=== PATIENT | female | born 1970 | race African-American/Black ===

== ENCOUNTER 2016-03-20 11:22 | Emergency (ER) | payer MEDICAID, OTHER ==
[~2016-03-20] VITALS: Ht 167.6 cm; Wt 116.5 kg
[~2016-03-20 11:22] MED LIST: [UNRECOGNIZED DRUG - CODE] PO
[2016-03-20 11:25] VITALS: BP 205/99; PULSE 68; RESP 18; O2SAT 98
--- NOTE | 2016-03-20 11:27 | PD ---
HPI Chief Complaint: R hand inj Time Seen by Provider: 11:27 Travel History International Travel<30 days: No Contact w/Intl Traveler<30days: No Traveled to known affect area: No History of Present Illness HPI 45 year old female presents to ED for evaluation of R hand pain for a week and a half after hitting on a door knob. Patient states that she has some wearing a compression glove on it but the pain persists. She has taken Tylenol for with now any relief of symptoms. She does have additional pain control at home but states that it doesn't really help either. Denies any fever or chills. Patient does not radiate anywhere. She has no limitations range motion of the hand. No other symptoms to report. PFSH Past Medical History Autoimmune Disease: No Blood Disorders: No Cancer: Yes (CML WITH THROMBOCYTOSIS) Cardiac Catheterization: Yes (IN 2008) Cardiovascular Problems: Yes High Cholesterol: Yes Chemotherapy: Yes Diabetes: Yes (DIET CONTROLLED) Diminished Hearing: No Gastrointestinal Disorders: No Genitourinary: No Hypertension: Yes Kidney Stones: No Musculoskeletal: No Neurologic: No Psychiatric: No Reproductive: Yes Respiratory: No Immunizations Current: No Myocardial Infarction: Yes (2006) Radiation Therapy: No Renal Failure: No Seizures: No Sickle Cell Disease: No Sleep Apnea: No Thyroid Disease: No Ulcer: No Menopausal: Yes : 4 Para: 4 Miscarriage: 0 : 0 Past Surgical History Abdominal Surgery: Yes (UMBILICAL HERNIA REPAIR) Section: Yes (X3) Gynecologic Surgery: Yes (C-SECTIONS X 3) Hysterectomy: Yes Neurologic Surgery: No Pacemaker: No Thoracic Surgery: No Other Surgery: Yes (THYROGLOSSAL CYST) Social History Alcohol Use: Yes (1-2 DRINKS/MO) Tobacco Use: No Substance Use: No Allergies-Medications (Allergen,Severity, Reaction): Coded Allergies: Aspirin (Verified Allergy, Severe, THROMBOCYTOSIS, 03/20/16) Codeine (Verified Allergy, Severe, VOMIT, 03/20/16) Motrin (Verified Allergy, Severe, Rash, 03/20/16) Rocephin (Verified Allergy, Severe, Rash, 03/20/16) Reported Meds & Prescriptions Reported Meds & Active Scripts Active Reported Sprycel (Dasatinib) 20 Mg Tab 100 Mg PO DAILY Review of Systems Except as stated in HPI: all other systems reviewed are Neg Physical Exam Narrative GENERAL: Well-nourished, well-developed female patient ambulatory and in no acute distress SKIN: Warm and dry. No erythema or edema HEAD: Normocephalic. EYES: No scleral icterus. No injection or drainage. NECK: Supple, trachea midline. No JVD or lymphadenopathy. CARDIOVASCULAR: Regular rate and rhythm without murmurs, gallops, or rubs. RESPIRATORY: Breath sounds equal bilaterally. No accessory muscle use. MUSCULOSKELETAL: No cyanosis, or edema. Patient has full flexion-extension of the right hand. There is no erythema or edema. No tenderness elicited to palpation. No deformities. Cap refill within normal limits. Distal pulses are palpable. Patient intact distal affected extremity. Data Data Last Documented VS Vital Signs Date Time Temp Pulse Resp B/P Pulse Ox O2 Delivery O2 Flow Rate FiO2 03/20/16 12:04 56 19 184/98 97 Room Air Orders Hand, Complete ([id number]) (03/20/16 ) ^ Benitez Bandage (03/20/16 12:29) MDM Medical Decision Making Medical Screen Exam Complete: Yes Emergency Medical Condition: Yes Medical Record Reviewed: Yes Differential Diagnosis Contusion versus sprain versus tendinitis versus fracture Narrative Course 45-year-old female presents to [facility] department for evaluation right hand pain. Patient appears well and without distress. The hand is without erythema or edema. No deformity. X-ray imaging is without acute bony abnormality. Patient is placed in an Benitez wrap and encouraged to continue her pain control that she has at home. I've instructed her to follow-up with a primary care provider. She agrees to return immediately with any acute worsening of symptoms. Diagnosis Primary Impression: Contusion of right hand Qualified Code: S60.221A - Contusion of right hand, initial encounter Referrals: Primary Care Physician Patient Instructions: Contusion in Adults (ED), General Instructions Additional Instructions: BENITEZ wrap for support Elevate to reduce pain Follow up with your primary care provider Med/Other Pt SpecificInfo: No Change to Meds Disposition: 01 DISCHARGE HOME Condition: Stable Lois Will EDVIN Mar 20, 2016 11:27
[2016-03-20 12:04] VITALS: BP 184/98; PULSE 56; RESP 19; O2SAT 97
--- NOTE | 2016-03-20 12:18 | RADRPT ---
EXAM DATE/TIME: 03/20/2016 11:41 [facility] COMPARISON: No previous studies available for comparison. INDICATIONS : Right hand pain after hitting it on door knob. MEDICAL HISTORY : Leukemia. Thrombocytosis.Myocardial infarction. Hypertension. diabetes SURGICAL HISTORY : section. Hysterectomy.umbilical hernia repair ENCOUNTER: Initial ACUITY: 1 week PAIN SCORE: 0/10 LOCATION: Right hand. FINDINGS: Three view examination of the right hand demonstrates no soft tissue swelling, dislocation, or fractu re. The carpal bones appear intact. The interphalangeal and metacarpophalangeal joints are intact. Bony mineralization is normal. CONCLUSION: Unremarkable examination of the right hand. Marietta Sauer MD on March 20, 2016 at 12:16 Board Certified Radiologist. This report was verified electronically.
== END 2016-03-20 13:01 | disposition home or self-care (01) ==
LOC: NETRI 11:22
DX: S60.221A Contusion of right hand, initial encounter (principal); E78.00 Pure hypercholesterolemia, unspecified; E11.9 Type 2 diabetes mellitus without complications; I10 Essential (primary) hypertension; I25.2 Old myocardial infarction; W22.8XXA Striking against or struck by other objects, initial encounter
CPT/HCPCS: 73130; 99283

== ENCOUNTER 2016-07-04 09:17 | Emergency (ER) | payer MEDICAID, OTHER ==
[~2016-07-04] VITALS: Ht 167.6 cm; Wt 118.0 kg
[2016-07-04 09:20] VITALS: BP 192/99; PULSE 83; RESP 17; TEMP 98.2; O2SAT 99
[2016-07-04] MEDS ORDERED: CHOL1CAP26 PO (09:34)
[2016-07-04] MEDS ORDERED: GABA300C5 PO (09:34)
--- NOTE | 2016-07-04 10:23 | RADRPT ---
EXAM DATE/TIME: 07/04/2016 10:00 [facility] COMPARISON: US LEG RIGHT VENOUS DOPPLER, April 08, 2012, 16:06. INDICATIONS : Right elbow pain. No known injury. MEDICAL HISTORY : Leukemia. Thrombocytosis. SURGICAL HISTORY : None. ENCOUNTER: Initial ACUITY: 4 - 6 days PAIN SCORE: 7/10 LOCATION: Right medial elbow FINDINGS: Multiple view examination of the right elbow demonstrates no soft tissue swelling, joint effusion, or fracture. The osseous structures are in normal alignment. Bony mineralization is normal. CONCLUSION: Normal radiographic appearance of the right elbow. Govind Jackson MD on July 04, 2016 at 10:21 Board Certified Radiologist. This report was verified electronically.
--- NOTE | 2016-07-04 11:02 | RADRPT ---
EXAM DATE/TIME: 07/04/2016 10:18 [facility] COMPARISON: US ARM RIGHT VENOUS DOPPLER, January 18, 2015, 21:25. INDICATIONS : Right arm pain. MEDICAL HISTORY : Diabetes mellitus type 2. Myocardial infarction. Hypercholesterolemia. Hypertension. Anemia. SURGICAL HISTORY : Colonoscopy. EGD. Thyroglocal duct cyst. Hernia repair. Hysterectomy. ENCOUNTER: Initial ACUITY: 1 day PAIN SCORE: 6/10 LOCATION: Right arm. FINDINGS: There is spontaneous flow documented in the brachial, basilic, cephalic, axillary, and subclavian vei ns. The vessels are compressible and augmentation response is documented. No filling defects are se en. The flow is phasic with respiration. Direction of flow in the jugular vein is caudal. CONCLUSION: Normal examination. iMkal Uribe Jr., MD on July 04, 2016 at 10:58 Board Certified Radiologist. This report was verified electronically.
[2016-07-04 11:05] VITALS: BP 168/89; PULSE 64; RESP 20; O2SAT 98
--- NOTE | 2016-07-04 11:15 | PD ---
HPI Chief Complaint: Pain: Acute or Chronic Time Seen by Provider: 09:32 Travel History International Travel<30 days: No Contact w/Intl Traveler<30days: No Traveled to known affect area: No History of Present Illness HPI Patient is a 45-year-old female who comes in complaining of pain to her right arm. She says she does get pain periodically due to her CML. She says she got some pain to this arm a few weeks ago, but it went away when she took a Lortab at home. She says the pain then came back this week. She has noticed swelling to her elbow and her hand. She was told that if this happened, she should be concerned for blood clots and she should come in. She says that at some point the tips of her fingers felt cold. The swelling and the coldness to her hand have resolved. She still has some pain to her elbow and forearm. And she says she feels a tingling on the right side of her hand occasionally. She denies any injuries. She has not taken anything for pain, because she says she likes to avoid taking narcotics as much as possible. She denies any chest pain or shortness of breath. She denies any fever or chills. PFSH Past Medical History Autoimmune Disease: No Blood Disorders: No Cancer: Yes (CML WITH THROMBOCYTOSIS) Cardiac Catheterization: Yes (IN 2008) Cardiovascular Problems: Yes High Cholesterol: Yes Chemotherapy: Yes Diabetes: Yes (DIET CONTROLLED) Patient Takes Glucophage: No Diminished Hearing: No Gastrointestinal Disorders: No Genitourinary: No Hypertension: Yes Kidney Stones: No Musculoskeletal: No Neurologic: No Psychiatric: No Reproductive: Yes Respiratory: No Immunizations Current: No Myocardial Infarction: Yes (2005) Radiation Therapy: No Renal Failure: No Seizures: No Sickle Cell Disease: No Sleep Apnea: No Thyroid Disease: No Ulcer: No Tetanus Vaccination: Never Vaccinated Influenza Vaccination: No ?: Not Menopausal: Yes : 4 Para: 4 Miscarriage: 0 : 0 Past Surgical History Abdominal Surgery: Yes (UMBILICAL HERNIA REPAIR) Section: Yes (X3) Gynecologic Surgery: Yes (C-SECTIONS X 3) Hysterectomy: Yes Neurologic Surgery: No Pacemaker: No Thoracic Surgery: No Other Surgery: Yes (THYROGLOSSAL CYST) Social History Alcohol Use: Yes (1-2 DRINKS/MO) Tobacco Use: No Substance Use: No Allergies-Medications (Allergen,Severity, Reaction): Coded Allergies: Aspirin (Verified Allergy, Severe, THROMBOCYTOSIS, 07/04/16) Codeine (Verified Allergy, Severe, VOMIT, 07/04/16) Motrin (Verified Allergy, Severe, Rash, 07/04/16) Rocephin (Verified Allergy, Severe, Rash, 07/04/16) Reported Meds & Prescriptions Reported Meds & Active Scripts Active Reported Gabapentin 300 Mg Cap 300 Mg PO BID Decara (Cholecalciferol) 50,000 Unit Cap 50,000 Units PO Q7D Sprycel (Dasatinib) 20 Mg Tab 100 Mg PO DAILY Review of Systems Except as stated in HPI: all other systems reviewed are Neg General / Constitutional: No: Fever, Chills HENT: No: Headaches, Lightheadedness Cardiovascular: No: Chest Pain or Discomfort Respiratory: No: Shortness of Breath Gastrointestinal: No: Nausea, Vomiting Musculoskeletal: Positive: Myalgias, Arthralgias, Edema Skin: No Rash, No Change in Pigmentation Neurologic: No: Weakness, Dizziness Physical Exam Narrative GENERAL: Awake and alert, in no acute distress. SKIN: Focused skin assessment warm/dry. HEAD: Atraumatic. Normocephalic. EYES: Pupils equal and round. No scleral icterus. ENT: Mucous membranes pink and moist. NECK: Trachea midline. No JVD. CARDIOVASCULAR: Regular rate and rhythm. No murmur appreciated. RESPIRATORY: No accessory muscle use. Clear to auscultation. Breath sounds equal bilaterally. GASTROINTESTINAL: Abdomen soft, non-tender, nondistended. MUSCULOSKELETAL: No obvious deformities. No clubbing. No cyanosis. No edema. No tenderness to palpation of the right shoulder. Pain with movement of the right elbow. Minimal tenderness to palpation of the right elbow. Radial pulse intact, strong. Capillary refill less than 2 seconds. Full range of motion of her right hand and right elbow. NEUROLOGICAL: Awake and alert. No obvious cranial nerve deficits. Motor grossly within normal limits. Normal speech. PSYCHIATRIC: Appropriate mood and affect; insight and judgment normal. Data Data Last Documented VS Vital Signs Date Time Temp Pulse Resp B/P Pulse Ox O2 Delivery O2 Flow Rate FiO2 07/04/16 11:05 64 20 168/89 98 Room Air 07/04/16 09:20 98.2 Orders Elbow, Complete (4 Vws) (07/04/16 ) Us Arm Venous Doppler (07/04/16 ) MDM Medical Decision Making Medical Screen Exam Complete: Yes Emergency Medical Condition: Yes Medical Record Reviewed: Yes Differential Diagnosis DVT versus fracture versus muscle strain Narrative Course Patient is a 45-year-old female comes in complaining of right arm pain. She says she does get pains periodically due to her CML. She says she was concerned because she had swelling to her hand, but this has gone down. Exam shows some tenderness to palpation of the right elbow and right forearm, pulses and sensation as well as capillary refill are all within normal limits. Patient states she does not one any pain medicine at this time. X-ray of the elbow shows no acute abnormalities. Doppler ultrasound of the arm performed shows no evidence of clots. Patient's radial pulse is strong, fingers are warm, there is no swelling at this time. I do not believe patient is having any arterial compromise. Patient advised that if her symptoms return at any time she should come back for further testing. She is comfortable with discharge at this time. Advised follow-up with her doctor. Diagnosis Primary Impression: Arm pain Qualified Code: M79.601 - Pain of right upper extremity Patient Instructions: Arm Pain (ED), General Instructions Additional Instructions: Follow up with your doctor. Take pain medicine as needed. Return to the ED as needed for any worsening symptoms. Disposition: 01 DISCHARGE HOME Condition: Stable Janel Mayes MD July 04, 2016 11:15
== END 2016-07-04 12:20 | disposition home or self-care (01) ==
LOC: NEPD 09:17
DX: M79.601 Pain in right arm (principal)
CPT/HCPCS: 73080; 93971

== ENCOUNTER 2016-08-11 14:35 | Emergency (ER) | payer MEDICAID ==
[~2016-08-11] VITALS: Ht 167.6 cm; Wt 119.0 kg
[~2016-08-11 14:35] MED LIST changes: +CHOL1CAP26 PO; +GABA300C5 PO
[2016-08-11 14:41] VITALS: BP 163/103; PULSE 73; RESP 16; TEMP 98.4; O2SAT 98
[2016-08-11] MEDS ORDERED: PRED20 PO (15:00)
--- NOTE | 2016-08-11 15:03 | PD ---
HPI Chief Complaint: Musculoskeletal Complaint Time Seen by Provider: 14:49 Travel History International Travel<30 days: No Contact w/Intl Traveler<30days: No Traveled to known affect area: No History of Present Illness HPI This patient complains of pain in the right elbow area. Duration is one month. She has no direct injury or trauma or acute he. Movements of the arm aggravated. 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 PFSH Past Medical History Autoimmune Disease: No Blood Disorders: No Cancer: Yes (CML WITH THROMBOCYTOSIS) Cardiac Catheterization: Yes (IN 2008) Cardiovascular Problems: Yes High Cholesterol: Yes Chemotherapy: Yes (PILL FORM DAILY) Diabetes: Yes (DIET CONTROLLED) Patient Takes Glucophage: No Diminished Hearing: No Gastrointestinal Disorders: No Genitourinary: No Hypertension: Yes Kidney Stones: No Musculoskeletal: No Neurologic: No Psychiatric: No Reproductive: Yes Respiratory: No Immunizations Current: No Myocardial Infarction: Yes (2005) Radiation Therapy: No Renal Failure: No Seizures: No Sickle Cell Disease: No Sleep Apnea: No Thyroid Disease: No Ulcer: No ?: Not Menopausal: Yes : 4 Para: 4 Miscarriage: 0 : 0 Past Surgical History Abdominal Surgery: Yes (UMBILICAL HERNIA REPAIR) Section: Yes (X3) Gynecologic Surgery: Yes (C-SECTIONS X 3) Hysterectomy: Yes Neurologic Surgery: No Pacemaker: No Thoracic Surgery: No Other Surgery: Yes (THYROGLOSSAL CYST) Family History Family Myocardial Infarction: No Social History Alcohol Use: Yes (1-2 DRINKS/[place]) Tobacco Use: No Substance Use: No Allergies-Medications (Allergen,Severity, Reaction): Coded Allergies: Aspirin (Verified Allergy, Severe, THROMBOCYTOSIS, 08/11/16) Codeine (Verified Allergy, Severe, VOMIT, 08/11/16) Motrin (Verified Allergy, Severe, Rash, 08/11/16) Rocephin (Verified Allergy, Severe, Rash, 08/11/16) Reported Meds & Prescriptions Reported Meds & Active Scripts Active Reported Decara (Cholecalciferol) 50,000 Unit Cap 50,000 Units PO Q7D Sprycel (Dasatinib) 20 Mg Tab 100 Mg PO DAILY Review of Systems General / Constitutional: No: Fever HENT: No: Headaches Cardiovascular: No: Chest Pain or Discomfort Respiratory: No: Cough Physical Exam Narrative SKIN: Focused skin assessment reveals no rash or ulcers. Skin is warm and dry. Palpation shows no induration or nodules. Psych: Normal mood and affect. Normal insight and judgment. Right arm: No erythema or warmth or swelling. Neurovascularly intact. She has a lot of point tenderness near the lateral epicondyle. Supination and pronation exacerbate her pain Data Data Last Documented VS Vital Signs Date Time Temp Pulse Resp B/P Pulse Ox O2 Delivery O2 Flow Rate FiO2 08/11/16 14:41 98.4 73 16 163/103 98 Orders Splint Or Brace Apply/Monitor (08/11/16 14:58) [facility] Medical Decision Making Medical Screen Exam Complete: Yes Emergency Medical Condition: Yes Medical Record Reviewed: Yes Differential Diagnosis Epicondylitis, strain, elbow dislocation Narrative Course I have reviewed the patient's electronic medical record. Presentation here is very consistent with a lateral epicondylitis of the right arm due to overuse injury or repetitive microtrauma Placed her in a sling Recommend ice and elevation and rest She has Lortab at home Prescribed 5 days of prednisone Diagnosis Primary Impression: Lateral epicondylitis of right elbow Additional Instructions: The patient was advised to follow up with their physician and return if they worsen. Ice and elevate and rest right elbow Use sling Med/Other Pt SpecificInfo: Prescription(s) given Scripts Prednisone 20 Mg Tab40 Mg PO DAILY #10 TAB Ref 0 Take 40 mg (2 tablets) daily for 5 days Prov:Morgan Fuentes MD 08/11/16 Disposition: 01 DISCHARGE HOME Condition: Stable Morgan Fuentes MD Aug 11, 2016 15:03
== END 2016-08-11 15:20 | disposition home or self-care (01) ==
LOC: PHED 14:35
DX: M77.11 Lateral epicondylitis, right elbow (principal); E11.9 Type 2 diabetes mellitus without complications; E78.00 Pure hypercholesterolemia, unspecified; I10 Essential (primary) hypertension; I25.2 Old myocardial infarction; X50.9XXA Other and unspecified overexertion or strenuous movements or postures, initial encounter; Y93.9 Activity, unspecified; Y92.9 Unspecified place or not applicable; Y99.8 Other external cause status
CPT/HCPCS: 99283

== ENCOUNTER 2016-10-17 09:17 | Emergency (ER) | payer MEDICAID ==
[2016-10-17] VITALS (7 sets, daily range): BP systolic 166–221; BP diastolic 68–108; PULSE 67–98; RESP 15–18; TEMP 97.8–98.4; O2SAT 98–100
[~2016-10-17] VITALS: Ht 167.6 cm; Wt 121.0 kg
[~2016-10-17 09:17] MED LIST changes: -GABA300C5 PO; +PRED20 PO
--- NOTE | 2016-10-17 10:27 | PD ---
HPI Chief Complaint: Hypertension Time Seen by Provider: 10:05 Travel History International Travel<30 days: No Contact w/Intl Traveler<30days: No Traveled to known affect area: No History of Present Illness HPI Patient is a 45-year-old female with history of hypertension, CML, presents to emergency room with complaints of hypertension. Patient reports that she was at her oncologist office on Friday, reports that she receives daily chemotherapy treatments for her CML. Patient reports that on Friday, her blood pressure was 230/120. She was given dose of clonidine by the RN at the oncology center, reports that she was told to check her blood pressure. Patient reports that her blood pressure has slowly been creeping up and has been persistent in the 180s to 200s systolic. Reports that she has persistently had a headache for the past couple months, she called the oncology clinic today and was told to go to the emergency room as she currently is not on any blood pressure medications. Patient reports that she used to be on blood pressure medications in the past, reports today due to weight loss, she was taken off all her medications. She is currently being seen by her primary care doctor, Dr. Kiran Samuel, reports that her last visit was a few months ago, reports that her blood pressure was a little high that point, they were going to monitor her blood pressure in lieu of starting on her blood pressure medications. Patient denies any chest pain or shortness of breath at this time , no vision changes. Reports that she just feels increased pressure to the front of her head. PFSH Past Medical History Autoimmune Disease: No Blood Disorders: No Cancer: Yes (CML WITH THROMBOCYTOSIS/ LEUKEMIA) Cardiac Catheterization: Yes (IN 2008) Cardiovascular Problems: Yes High Cholesterol: Yes Chemotherapy: Yes (PILL FORM DAILY) Diabetes: Yes (DIET CONTROLLED) Patient Takes Glucophage: No Diminished Hearing: No Gastrointestinal Disorders: No Genitourinary: No Hypertension: Yes Kidney Stones: No Musculoskeletal: No Neurologic: No Psychiatric: No Reproductive: Yes Respiratory: No Immunizations Current: No Myocardial Infarction: Yes (2005) Radiation Therapy: No Renal Failure: No Seizures: No Sickle Cell Disease: No Sleep Apnea: No Thyroid Disease: No Ulcer: No Tetanus Vaccination: > 5 Years Influenza Vaccination: No ?: Not Menopausal: Yes : 4 Para: 4 Miscarriage: 0 : 0 Past Surgical History Abdominal Surgery: Yes (UMBILICAL HERNIA REPAIR) Section: Yes (X3) Gynecologic Surgery: Yes (C-SECTIONS X 3) Hysterectomy: Yes Neurologic Surgery: No Pacemaker: No Thoracic Surgery: No Other Surgery: Yes (THYROGLOSSAL CYST) Social History Alcohol Use: No (pt denies ) Tobacco Use: No Substance Use: No (pt denies) Allergies-Medications (Allergen,Severity, Reaction): Coded Allergies: ceftriaxone (Verified Allergy, Severe, Rash, 10/17/16) codeine (Verified Allergy, Severe, VOMIT, 10/17/16) ibuprofen (Verified Allergy, Severe, Rash, 10/17/16) aspirin (Verified Adverse Reaction, Severe, THROMBOCYTOSIS, 10/17/16) Reported Meds & Prescriptions Reported Meds & Active Scripts Active Norvasc (Amlodipine Besylate) 5 Mg Tab 5 Mg PO DAILY Reported Sprycel (Dasatinib) 20 Mg Tab 100 Mg PO DAILY Review of Systems General / Constitutional: No: Fever Eyes: No: Visual changes HENT: Positive: Headaches Cardiovascular: No: Chest Pain or Discomfort, Palpitations, Irregular Rhythm Respiratory: No: Shortness of Breath Gastrointestinal: No: Abdominal Pain Genitourinary: No: Dysuria Musculoskeletal: No: Pain Skin: No Rash Neurologic: Positive: Headache, No: Weakness Psychiatric: No: Depression Endocrine: No: Polydipsia Hematologic/Lymphatic: No: Easy Bruising Physical Exam Narrative GENERAL: mild distress SKIN: Focused skin assessment warm/dry. HEAD: Atraumatic. Normocephalic. EYES: Pupils equal and round. No scleral icterus. No injection or drainage. ENT: No nasal bleeding or discharge. Mucous membranes pink and moist. NECK: Trachea midline. No JVD. CARDIOVASCULAR: Regular rate and rhythm. No murmur appreciated. RESPIRATORY: No accessory muscle use. Clear to auscultation. Breath sounds equal bilaterally. GASTROINTESTINAL: Abdomen soft, non-tender, nondistended. Hepatic and splenic margins not palpable. MUSCULOSKELETAL: No obvious deformities. No clubbing. No cyanosis. No edema. NEUROLOGICAL: Awake and alert. No obvious cranial nerve deficits. Motor grossly within normal limits. Normal speech. CN 2-12 grossly intact with no neurological deficits PSYCHIATRIC: Appropriate mood and affect; insight and judgment normal. Data Data Last Documented VS Vital Signs Date Time Temp Pulse Resp B/P Pulse Ox O2 Delivery O2 Flow Rate FiO2 10/17/16 12:26 72 18 166/83 98 Room Air 10/17/16 10:00 97.8 Orders Complete Blood Count With Diff (10/17/16 10:16) Basic Metabolic Panel (Bmp) (10/17/16 10:16) Prothrombin Time / Inr (Pt) (10/17/16 10:16) Act Partial Throm Time (Ptt) (10/17/16 10:16) Ct Brain W/O Iv Contrast(Rout) (10/17/16 10:16) Ecg Monitoring (10/17/16 10:16) Iv Access Insert/Monitor (10/17/16 10:16) Oximetry (10/17/16 10:16) Sodium Chloride 0.9% Flush (Ns Flush) (10/17/16 10:30) Ed Urine Pregnancytest Poc (10/17/16 10:16) Hydralazine Inj (Apresoline Inj) (10/17/16 10:30) Electrocardiogram (10/17/16 ) Amlodipine (Norvasc) (10/17/16 11:15) Labs Laboratory Tests Test 10/17/16 10:25 White Blood Count 5.2 TH/MM3 Red Blood Count 4.59 MIL/MM3 Hemoglobin 10.9 GM/DL Hematocrit 35.4 % Mean Corpuscular Volume 77.1 FL Mean Corpuscular Hemoglobin 23.8 PG Mean Corpuscular Hemoglobin 30.8 % Concent Red Cell Distribution Width 15.4 % Platelet Count 174 TH/MM3 Mean Platelet Volume 9.0 FL Neutrophils (%) (Auto) 60.4 % Lymphocytes (%) (Auto) 31.0 % Monocytes (%) (Auto) 5.6 % Eosinophils (%) (Auto) 2.0 % Basophils (%) (Auto) 1.0 % Neutrophils # (Auto) 3.1 TH/MM3 Lymphocytes # (Auto) 1.6 TH/MM3 Monocytes # (Auto) 0.3 TH/MM3 Eosinophils # (Auto) 0.1 TH/MM3 Basophils # (Auto) 0.1 TH/MM3 CBC Comment DIFF FINAL Differential Comment Prothrombin Time 11.7 SEC Prothromb Time International 1.1 RATIO Ratio Activated Partial 26.0 SEC Thromboplast Time Sodium Level 139 MEQ/L Potassium Level 5.6 MEQ/L Chloride Level 105 MEQ/L Carbon Dioxide Level 28.4 MEQ/L Anion Gap 6 MEQ/L Blood Urea Nitrogen 13 MG/DL Creatinine 0.91 MG/DL Estimat Glomerular Filtration 80 ML/MIN Rate Random Glucose 106 MG/DL Calcium Level 9.6 MG/DL [facility] Medical Decision Making Medical Screen Exam Complete: Yes Emergency Medical Condition: Yes Interpretation(s) EKG at 1035: NSR at 66bpm, qt/qtc: 392/406, no acute st or t wave changes Vital Signs Date Time Temp Pulse Resp B/P Pulse Ox O2 Delivery O2 Flow Rate FiO2 10/17/16 10:00 97.8 68 16 221/108 100 Room Air 10/17/16 09:55 68 16 100 Room Air 10/17/16 09:20 208/95 10/17/16 09:19 98.4 98 15 220/101 100 Differential Diagnosis Differential includes hypertensive emergency vs hypertensive urgency Narrative Course Patient is a 45-year-old female who presents to emergency room for evaluation of hypertension. Past history of hypertension, reports that due to weight loss , she was taken off all her medications. Reports that she has gained all her weight back and is currently undergoing chemotherapy for her CML. Patient was found To have a blood pressure of 230/120 at her oncology office on Friday, she has been monitoring her blood pressure and noted that blood pressure has been elevated. Patient currently not on any blood pressure medications, she called her oncology office today and was told to go to the emergency for evaluation as she has been having headaches. Patient's blood pressure has been persistently in the 220/108, she does complain of a headache this time. Plan to obtain CT of the head, lab work to evaluate for end organ damage. We'll give a dose of IV hydralazine. Plan to monitor patient's blood pressure. Vital Signs Date Time Temp Pulse Resp B/P Pulse Ox O2 Delivery O2 Flow Rate FiO2 10/17/16 11:14 70 18 184/68 100 Room Air 10/17/16 10:38 67 18 196/84 100 Room Air 10/17/16 10:25 16 99 Room Air 10/17/16 10:00 97.8 68 16 221/108 100 Room Air 10/17/16 09:55 68 16 100 Room Air 10/17/16 09:20 208/95 10/17/16 09:19 98.4 98 15 220/101 100 CBC & BMP Diagram 8/17/17 10:25 BP now 184/68 - patient's symptoms have resolved. Patient has been started on norvasc 5mg daily. Discussed need for her to follow up with her pcp tomorrow for bp recheck, she will return to ER if she cannot be seen by her pcp. Signs and symptoms of when to return to ER was reviewed with patient in detail. 3 calls made to pt's pcp - no call back. Patient to be discharged home, she will return to emergency room for evaluation tomorrow if she is symptomatic and cannot be seen by her primary care doctor. Patient understands signs and symptoms of when to return to the Emergency room. BP now 166/83. Patient with no end organ damage on studies. Patient safe to be discharged to home with strict return instructions and follow up with pcp Diagnosis Primary Impression: Hypertension Qualified Code: I10 - Hypertension, unspecified type Patient Instructions: General Instructions Additional Instructions: Please follow up with your primary care doctor tomorrow for blood pressure recheck. If you cannot be seen by your primary care doctor, then return to the ER for blood pressure recheck. Return to ER if symptoms worsen or progress. Return to ER as needed Med/Other Pt SpecificInfo: Prescription(s) given Scripts Amlodipine (Norvasc)5 Mg Tab5 Mg PO DAILY #30 TAB Ref 0 Prov:Anna Raphael DO 10/17/16 Disposition: 01 DISCHARGE HOME Condition: Stable Anna Raphael DO Oct 17, 2016 10:26
[2016-10-17] MEDS ORDERED: hydrALAZINE HCL 20 MG/ML VIAL IV PUSH ONE (10:30)
[2016-10-17] MEDS ORDERED: SODIUM CHLORIDE 0.9% FLUSH 10 ML FLUSH IVF PRN (10:30)
[2016-10-17 10:37] LABS: AUTOMATED NEUTROPHIL # 3.1 TH/MM3 (1.8-7.7); BASOPHIL # 0.1 TH/MM3 (0-0.2); EOSINOPHIL # 0.1 TH/MM3 (0-0.4); HEMATOCRIT 35.4 % (35.0-46.0); HEMO FLAGS DIFF FINAL; LYMPHOCYTE # 1.6 TH/MM3 (1.0-4.8); MEAN CELL VOLUME 77.1 FL (80.0-100.0); MEAN CORPUSCULAR HEMOGLOBIN 23.8 PG (27.0-34.0); MEAN CORPUSCULAR HGB CONC 30.8 % (32.0-36.0); MONO % 5.6 % (0.0-8.0); NEUT % 60.4 % (16.0-70.0); PLATELET COUNT 174 TH/MM3 (150-450); RED BLOOD COUNT 4.59 MIL/MM3 (4.00-5.30); RED CELL DISTRIBUTION WIDTH 15.4 % (11.6-17.2); WHITE BLOOD COUNT 5.2 TH/MM3 (4.0-11.0)
[2016-10-17 10:47] LABS: INTERNATIONAL NORMALIZED RATIO 1.1 RATIO; PROTHROMBIN TIME - PATIENT 11.7 SEC (9.8-11.6)
[2016-10-17 11:06] LABS: BICARBONATE 28.4 MEQ/L (21.0-32.0); POTASSIUM 5.6 MEQ/L (3.5-5.1)
[2016-10-17] MEDS ORDERED: amLODIPine BESYLATE 5 MG TAB PO ONE (11:15)
[2016-10-17] MEDS ORDERED: AMLO5 PO (12:15)
--- NOTE | 2016-10-17 12:21 | RADRPT ---
EXAM DATE/TIME: 10/17/2016 12:14 [place] COMPARISON: CT BRAIN W/O CONTRAST, September 11, 2011, 11:24. INDICATIONS : Headache. Hypertension. RADIATION DOSE: 41.05 CTDIvol (mGy) MEDICAL HISTORY : Cardiovascular disease. Diabetes mellitus type 2. SURGICAL HISTORY : Hysterectomy. ENCOUNTER: Initial ACUITY: 1 day PAIN SCALE: 0/10 LOCATION: cranial TECHNIQUE: Multiple contiguous axial images were obtained of the head. Using automated exposure control and adj ustment of the mA and/or kV according to patient size, radiation dose was kept as low as reasonably a chievable to obtain optimal diagnostic quality images. DICOM format image data is available electro nically for review and comparison. FINDINGS: CEREBRUM: The ventricles are normal for age. No evidence of midline shift, mass lesion, hemorrhage or acute in farction. No extra-axial fluid collections are seen. POSTERIOR FOSSA: The cerebellum and brainstem are intact. The 4th ventricle is midline. The cerebellopontine angle i s unremarkable. EXTRACRANIAL: The visualized portion of the orbits is intact. SKULL: The calvaria is intact. No evidence of skull fracture. CONCLUSION: No acute disease. Kadeem Ding MD on October 17, 2016 at 12:18 Board Certified Radiologist. This report was verified electronically.
--- NOTE | 2016-10-17 13:04 | EKG ---
Date Performed: 10/17/2016 Time Performed: 10:35:26 PTAGE: 45 years EKG: Sinus rhythm WITH SINUS ARRHYTHMIA NORMAL ECG PREVIOUS TRACING : 07/18/2016 13.22 Compared to prior tracing no significant change DOCTOR: Rell Jones Interpretating Date/Time 10/17/2016 13:02:48
== END 2016-10-17 14:02 | disposition home or self-care (01) ==
LOC: NEPD 09:17
DX: I10 Essential (primary) hypertension (principal); R51 Headache; C92.10 Chronic myeloid leukemia, BCR/ABL-positive, not having achieved remission; I49.8 Other specified cardiac arrhythmias; D47.3 Essential (hemorrhagic) thrombocythemia; E11.9 Type 2 diabetes mellitus without complications; E78.00 Pure hypercholesterolemia, unspecified; I25.2 Old myocardial infarction; Z79.899 Other long term (current) drug therapy
CPT/HCPCS: 70450; 80048; 84703; 85025; 85610; 85730; 93005; 96374; 99285; J0360

== ENCOUNTER 2016-10-21 12:03 | Emergency (ER) | payer MEDICAID ==
[~2016-10-21] VITALS: Ht 167.6 cm; Wt 119.0 kg
[~2016-10-21 12:03] MED LIST changes: +AMLO5 PO; -CHOL1CAP26 PO; -PRED20 PO
[2016-10-21 12:05] VITALS: BP 197/104; PULSE 72; RESP 20; TEMP 98.5; O2SAT 100
--- NOTE | 2016-10-21 12:12 | PD ---
Physical Exam Date Seen by Provider: Oct 21, 2016 Time Seen by Provider: 12:09 Narrative 45 y/o female here with c/o increased Hypertension. Seen here recently for same. Not able to see Primary. Patient C/O Left lower chest/Abd Pain. STILES is 6 /10 current. No Other Neuro Symptoms. EKG ordered. Vital Signs reviewed. Patient is Stable and Awaiting Bed Placement. Data Data Last Documented VS Vital Signs Date Time Temp Pulse Resp B/P (MAP) Pulse Ox O2 Delivery O2 Flow Rate FiO2 10/21/16 12:05 98.5 72 20 197/104 (135) 100 Room Air [facility] Medical Record Reviewed: Yes Supervised Visit with LUANNE: Yes Condition: Stable Paresh Steward Oct 21, 2016 12:12
[2016-10-21 14:59] VITALS: BP 190/100; PULSE 68
--- NOTE | 2016-10-22 13:54 | EKG ---
Date Performed: 10/21/2016 Time Performed: 12:31:50 PTAGE: 45 years EKG: SINUS BRADYCARDIA BORDERLINE ECG PREVIOUS TRACING : 10/17/2016 10.35 Nonspecific inferior T-wave changes with an abnormal P-wave vector. This is a new but nonspecific finding since the prior tracing. DOCTOR: Joanna Hayes Interpretating Date/Time 10/22/2016 13:54:03
== END 2016-10-21 15:58 | disposition left against medical advice (07) ==
LOC: NED 12:03
DX: I10 Essential (primary) hypertension (principal)
CPT/HCPCS: 93005; 99283

== ENCOUNTER 2017-03-09 15:49 | Emergency (ER) | payer MEDICAID, OTHER ==
[~2017-03-09] VITALS: Ht 167.6 cm; Wt 119.5 kg
[2017-03-09 15:52] VITALS: BP 194/92; PULSE 95; RESP 18; TEMP 98.7; O2SAT 98
[2017-03-09] MEDS ORDERED: LIDOCAINE 1%/EPINEPHrine 1:100,000 SOLN 20 ML VIAL INFIL ONE (16:15)
--- NOTE | 2017-03-09 16:16 | PD ---
HPI Chief Complaint: Lump, Cyst, Hernia Time Seen by Provider: 16:03 Travel History International Travel<30 days: No Contact w/Intl Traveler<30days: No Traveled to known affect area: No History of Present Illness HPI This is a 46-year-old female with history of hidradenitis supportiva, leukemia, presents for evaluation of a painful lump in the right axilla. It started 4 days ago. She reports localized pain, throbbing, constant, worse with palpation. Denies any drainage, fevers or chills. She has had frequent skin lesions past. No other complaints. PFSH Past Medical History Autoimmune Disease: No Blood Disorders: Yes (Thalassemia) Cancer: Yes (CML WITH THROMBOCYTOSIS/ LEUKEMIA) Cardiac Catheterization: Yes (IN 2008) Cardiovascular Problems: [place] ([place]) High Cholesterol: Yes Chemotherapy: Yes (ORAL CHEMO DAILY/ LEUKEMIA CML) Diabetes: Yes (DIET CONTROLLED) Patient Takes Glucophage: No Diminished Hearing: No Gastrointestinal Disorders: No Genitourinary: No Hypertension: Yes Kidney Stones: No Musculoskeletal: No Neurologic: No Psychiatric: No Reproductive: Yes Respiratory: No Immunizations Current: No Myocardial Infarction: Yes (2006) Radiation Therapy: No Renal Failure: No Seizures: No Sickle Cell Disease: No Sleep Apnea: No Thyroid Disease: No Ulcer: No Tetanus Vaccination: > 5 Years Influenza Vaccination: No ?: Not LMP: 2003 Menopausal: Yes : 4 Para: 4 Miscarriage: 0 : 0 Past Surgical History Abdominal Surgery: Yes (UMBILICAL HERNIA REPAIR) Section: Yes (X3) Gynecologic Surgery: Yes (C-SECTIONS X 3) Hysterectomy: Yes Neurologic Surgery: No Pacemaker: No Thoracic Surgery: No Other Surgery: Yes (THYROGLOSSAL CYST) Social History Alcohol Use: No (pt denies ) Tobacco Use: No Substance Use: No (pt denies) Allergies-Medications (Allergen,Severity, Reaction): Coded Allergies: ceftriaxone (Verified Allergy, Severe, Rash, 10/17/16) codeine (Verified Allergy, Severe, VOMIT, 10/17/16) ibuprofen (Verified Allergy, Severe, Rash, 10/17/16) aspirin (Verified Adverse Reaction, Severe, THROMBOCYTOSIS, 10/17/16) Reported Meds & Prescriptions Reported Meds & Active Scripts Active Clindamycin (Clindamycin HCl) 300 Mg Cap 300 Mg PO TID Norvasc (Amlodipine Besylate) 5 Mg Tab 5 Mg PO DAILY Reported Zetia (Ezetimibe) 10 Mg Tab 10 Mg PO DAILY Lovastatin 10 Mg Tab 10 Mg PO DAILY Hydrochlorothiazide 25 Mg Tab 25 Mg PO DAILY Losartan (Losartan Potassium) 100 Mg Tab 100 Mg PO DAILY Sprycel (Dasatinib) 20 Mg Tab 100 Mg PO DAILY Review of Systems Except as stated in HPI: all other systems reviewed are Neg Physical Exam Narrative GENERAL: Well-developed well-nourished female in no acute distress SKIN: Warm and dry. 3 cm area of fluctuance in the right axilla which is tender to palpation, nondraining. HEAD: Atraumatic. Normocephalic. EYES: Pupils equal and round. No scleral icterus. No injection or drainage. ENT: No nasal bleeding or discharge. Mucous membranes pink and moist. NECK: Trachea midline. No JVD. CARDIOVASCULAR: Regular rate and rhythm. No murmur appreciated. RESPIRATORY: No accessory muscle use. Clear to auscultation. Breath sounds equal bilaterally. GASTROINTESTINAL: Abdomen soft, non-tender, nondistended. Hepatic and splenic margins not palpable. MUSCULOSKELETAL: No obvious deformities. No clubbing. No cyanosis. No edema. NEUROLOGICAL: Awake and alert. No obvious cranial nerve deficits. Motor grossly within normal limits. Normal speech. PSYCHIATRIC: Appropriate mood and affect; insight and judgment normal. Data Data Last Documented VS Vital Signs Date Time Temp Pulse Resp B/P (MAP) Pulse Ox O2 Delivery O2 Flow Rate FiO2 03/09/17 16:19 91 18 170/81 (110) 98 Room Air 03/09/17 15:52 98.7 Orders Orders Lidocai-Epi 1%-1:100,000 Inj (Xylocaine- (03/09/17 16:15) Wound Culture And Gram Stain (03/09/17 16:13) Lidocai-Epi 1%-1:100,000 Inj (Xylocaine- (03/09/17 16:22) Clindamycin (Cleocin) (03/09/17 16:45) Ed Discharge Order (03/09/17 16:36) [facility] Medical Decision Making Medical Screen Exam Complete: Yes Emergency Medical Condition: Yes Medical Record Reviewed: Yes Differential Diagnosis Axillary abscess, carbuncle, cellulitis, hidradenitis Narrative Course The patient has a right axillary abscess which requires incision and drainage for which she verbally consents. Wound culture will be performed. Discharged with clindamycin. Procedures Procedure Narrative INCISION AND DRAINAGE OF ABSCESS: The area was prepped and was sterilely draped. A subcutaneous wheal of 1% Xylocaine with epinephrine with a total number 5 mL was used to anesthetize the area. The area was properly anesthetized. A number 11 scalpel was used to make a 1-cm incision across the area of the abscess. Cultures were obtained. The abscess was drained an irrigated with normal saline. Diagnosis Primary Impression: Abscess of right axilla Additional Instructions: Antibiotics as prescribed. Warm compresses several times a day 15 minutes at a time. Follow-up with primary care physician as needed. Return for any emergent medical conditions. Med/Other Pt SpecificInfo: Prescription(s) given, Wound Care Scripts Clindamycin (Clindamycin) 300 Mg Cap 300 MG PO TID for Infection, #30 CAP 0 Refills Prov: Jaden Turcios MD 03/09/17 Disposition: DISCHARGE HOME Condition: Stable Fred Ye Mar 09, 2017 16:16
[2017-03-09] MEDS ORDERED: LOVA10TA PO (16:18)
[2017-03-09] MEDS ORDERED: EZET10 PO (16:18)
[2017-03-09] MEDS ORDERED: LOSA100T PO (16:18)
[2017-03-09] MEDS ORDERED: HYDR25TA5 PO (16:18)
[2017-03-09 16:19] VITALS: BP 170/81; PULSE 91; RESP 18; O2SAT 98
[2017-03-09] MEDS ORDERED: LIDOCAINE 1%/EPINEPHrine 1:100,000 SOLN 30 ML VIAL ONE (16:22)
[2017-03-09] MEDS ORDERED: CLIN300C5 PO (16:37)
[2017-03-09] MEDS ORDERED: CLINDAMYCIN 150 MG CAP PO ONE (16:45)
== END 2017-03-09 17:22 | disposition home or self-care (01) ==
LOC: NEPE 15:49
DX: L02.411 Cutaneous abscess of right axilla (principal); B96.4 Proteus (mirabilis) (morganii) as the cause of diseases classified elsewhere; C95.90 Leukemia, unspecified not having achieved remission; D56.9 Thalassemia, unspecified; I25.2 Old myocardial infarction; E78.00 Pure hypercholesterolemia, unspecified; E11.9 Type 2 diabetes mellitus without complications; I10 Essential (primary) hypertension; Z79.899 Other long term (current) drug therapy
CPT/HCPCS: 10060; 86403; 87070; 87077; 87186; 87205

== ENCOUNTER 2017-05-07 20:31 | Emergency (ER) | payer MEDICAID ==
[~2017-05-07 20:31] MED LIST changes: +CLIN300C5 PO; +EZET10 PO; +HYDR25TA5 PO; +LOSA100T PO; +LOVA10TA PO
[2017-05-07 20:39] VITALS: BP 183/91; PULSE 72; RESP 18; TEMP 98.1; O2SAT 99
[2017-05-07] MEDS ORDERED: AMOX500T PO (22:53)
--- NOTE | 2017-05-09 11:01 | PD ---
HPI Chief Complaint: Cold / Flu Symptoms Time Seen by Provider: 20:39 Travel History International Travel<30 days: No Contact w/Intl Traveler<30days: No Traveled to known affect area: No History of Present Illness HPI Patient is a 46-year-old female presenting to the emergency room for evaluation of sore throat and ear pain. Patient states started this morning, she reports it gradually getting worse throughout the day. She denies any fevers, nausea, vomiting, headache, nasal congestion or cough. She further denies any chest pain, shortness of breath or abdominal pain. Patient has not taken any medications to alleviate her symptoms. Symptom onset was gradual, symptoms severity is mild to moderate. Pain is reported as a 4 out of 10 in aching and dull. PFSH Past Medical History Autoimmune Disease: No Blood Disorders: Yes (Thalassemia) Cancer: Yes (CML WITH THROMBOCYTOSIS/ LEUKEMIA) Cardiac Catheterization: Yes (IN 2008) Cardiovascular Problems: Yes ([place]) High Cholesterol: Yes Chemotherapy: Yes (ORAL CHEMO DAILY/ LEUKEMIA CML) Diabetes: Yes (DIET CONTROLLED) Diminished Hearing: No Gastrointestinal Disorders: No Genitourinary: No Hypertension: Yes Kidney Stones: No Musculoskeletal: No Neurologic: No Psychiatric: No Reproductive: Yes Respiratory: No Immunizations Current: No Myocardial Infarction: Yes (2006) Radiation Therapy: No Renal Failure: No Seizures: No Sickle Cell Disease: No Sleep Apnea: No Thyroid Disease: No Ulcer: No ?: Not LMP: 2003 Menopausal: Yes : 4 Para: 4 Miscarriage: 0 : 0 Past Surgical History Abdominal Surgery: Yes (UMBILICAL HERNIA REPAIR) Section: Yes (X3) Gynecologic Surgery: Yes (C-SECTIONS X 3) Hysterectomy: Yes Neurologic Surgery: No Pacemaker: No Thoracic Surgery: No Other Surgery: Yes (THYROGLOSSAL CYST) Social History Alcohol Use: No (pt denies ) Tobacco Use: No Substance Use: No (pt denies) Allergies-Medications (Allergen,Severity, Reaction): Coded Allergies: ceftriaxone (Verified Allergy, Severe, Rash, 05/07/17) codeine (Verified Allergy, Severe, VOMIT, 05/07/17) ibuprofen (Verified Allergy, Severe, Rash, 05/07/17) aspirin (Verified Adverse Reaction, Severe, THROMBOCYTOSIS, 05/07/17) Reported Meds & Prescriptions Reported Meds & Active Scripts Active Amoxicillin 500 Mg Tab 500 Mg PO TID 10 Days Clindamycin (Clindamycin HCl) 300 Mg Cap 300 Mg PO TID Norvasc (Amlodipine Besylate) 5 Mg Tab 5 Mg PO DAILY Reported Sprycel (Dasatinib) 20 Mg Tab 100 Mg PO DAILY Review of Systems Except as stated in HPI: all other systems reviewed are Neg HENT: Positive: Congestion, Earache Physical Exam Narrative GENERAL: Well-developed, well-nourished, well-appearing female. Presenting in no acute distress. SKIN: Warm and dry. HEAD: Normocephalic. EYES: No scleral icterus. No injection or drainage. CARDIOVASCULAR: Regular rate RESPIRATORY: No accessory muscle use. Data Data Last Documented VS Vital Signs Date Time Temp Pulse Resp B/P (MAP) Pulse Ox O2 Delivery O2 Flow Rate FiO2 05/07/17 20:39 98.1 72 18 183/91 (121) 99 [facility] Medical Decision Making Medical Screen Exam Complete: Yes Emergency Medical Condition: Yes Interpretation(s) Vital Signs Date Time Temp Pulse Resp B/P (MAP) Pulse Ox O2 Delivery O2 Flow Rate FiO2 05/07/17 20:39 98.1 72 18 183/91 (121) 99 Differential Diagnosis Otitis media versus otitis externa versus URI versus other Narrative Course Patient is a 46-year-old female presenting to emergency room for evaluation of cold symptoms. Patient's vital signs are stable, she is well-appearing. Patient is awaiting bed placement. Patient was called be placed in a bed, she was no longer found in the emergency department. Patient left AMA. Diagnosis Primary Impression: Left against medical advice Patient Instructions: General Instructions Departure Forms: Tests/Procedures Disposition: 07 AGAINST MEDICAL ADVICE Cate Casas May 09, 2017 11:01
== END 2017-05-07 22:15 | disposition left against medical advice (07) ==
LOC: NED 20:31
DX: Z53.21 Procedure and treatment not carried out due to patient leaving prior to being seen by health care provider (principal); I10 Essential (primary) hypertension; I25.2 Old myocardial infarction; E78.00 Pure hypercholesterolemia, unspecified; E11.9 Type 2 diabetes mellitus without complications; Z85.6 Personal history of leukemia; Z88.5 Allergy status to narcotic agent; Z88.8 Allergy status to other drugs, medicaments and biological substances; Z79.899 Other long term (current) drug therapy
CPT/HCPCS: 99281

== ENCOUNTER 2017-05-07 22:18 | Emergency (ER) | payer SELFPAY ==
[~2017-05-07] VITALS: Ht 167.6 cm; Wt 118.8 kg
[2017-05-07 22:24] VITALS: BP 164/88; PULSE 75; RESP 15; TEMP 98.7; O2SAT 100
[2017-05-07] MEDS ORDERED: AMOX500T PO (22:53)
--- NOTE | 2017-05-07 22:54 | PD ---
HPI Chief Complaint: ENT Complaint Time Seen by Provider: 22:38 Travel History International Travel<30 days: No Contact w/Intl Traveler<30days: No Traveled to known affect area: No History of Present Illness HPI The patient is a 46-year-old female, frequent visitors emergency department, who complains of a sore throat and left ear pain since this morning. She denies any fever. She is currently on chemotherapy for chronic myelocytic leukemia. She also has thrombocytosis. She claims a pain of 8/10 with a sore throat and ear pain. He states he does have narcotic pain medicines for the pain. She is allergic to Rocephin. She prefers no throat culture if possible, the throat is very irritating to her. She denies any fever, nausea, vomiting or diarrhea. PFSH Past Medical History Autoimmune Disease: No Blood Disorders: Yes (Thalassemia) Cancer: Yes (CML WITH THROMBOCYTOSIS/ LEUKEMIA) Cardiac Catheterization: Yes (IN 2008) Cardiovascular Problems: Yes ([place]) High Cholesterol: Yes Chemotherapy: Yes ( 2011 TO PRESENT FOR CML) Diabetes: Yes (DIET CONTROLLED) Patient Takes Glucophage: No Diminished Hearing: No Gastrointestinal Disorders: No Genitourinary: No Hypertension: Yes Kidney Stones: No Musculoskeletal: No Neurologic: No Psychiatric: No Reproductive: Yes Respiratory: No Immunizations Current: No Myocardial Infarction: Yes (2005) Radiation Therapy: No Renal Failure: No Seizures: No Sickle Cell Disease: No Sleep Apnea: No Thyroid Disease: No Ulcer: No Tetanus Vaccination: Unknown Influenza Vaccination: No ?: Not Menopausal: Yes : 4 Para: 4 Miscarriage: 0 : 0 Past Surgical History Abdominal Surgery: Yes (UMBILICAL HERNIA REPAIR) Section: Yes (X3) Gynecologic Surgery: Yes (C-SECTIONS X 3) Hysterectomy: Yes (2005) Neurologic Surgery: No Pacemaker: No Thoracic Surgery: No Other Surgery: Yes (THYROGLOSSAL CYST) Social History Alcohol Use: No (pt denies ) Tobacco Use: No Substance Use: No (pt denies) Allergies-Medications (Allergen,Severity, Reaction): Coded Allergies: ceftriaxone (Verified Allergy, Severe, Rash, 05/07/17) codeine (Verified Allergy, Severe, VOMIT, 05/07/17) ibuprofen (Verified Allergy, Severe, Rash, 05/07/17) aspirin (Verified Adverse Reaction, Severe, THROMBOCYTOSIS, 05/07/17) Reported Meds & Prescriptions Reported Meds & Active Scripts Active Clindamycin (Clindamycin HCl) 300 Mg Cap 300 Mg PO TID Norvasc (Amlodipine Besylate) 5 Mg Tab 5 Mg PO DAILY Reported Sprycel (Dasatinib) 20 Mg Tab 100 Mg PO DAILY Review of Systems Except as stated in HPI: all other systems reviewed are Neg Physical Exam Narrative GENERAL: Well-nourished, well-developed patient. The patient's vital signs show blood pressure 164/88 but are otherwise normal. SKIN: Focused skin assessment warm/dry. HEAD: Normocephalic. EYES: No scleral icterus. No injection or drainage. NECK: Supple, trachea midline. No JVD or lymphadenopathy. CARDIOVASCULAR: Regular rate and rhythm without murmurs, gallops, or rubs. RESPIRATORY: Breath sounds equal bilaterally. No accessory muscle use. Lungs clear to auscultation bilaterally. GASTROINTESTINAL: Abdomen soft, non-tender, nondistended. MUSCULOSKELETAL: No cyanosis, or edema. BACK: Nontender without obvious deformity. No CVA tenderness. Pressure 164/88 but otherwise normal. ENT: Right tympanic membrane and canal are normal, the left canal is normal but the left eardrum is slightly red as compared to the right. The throat shows erythema but no abscess or exudate. Data Data Last Documented VS Vital Signs Date Time Temp Pulse Resp B/P (MAP) Pulse Ox O2 Delivery O2 Flow Rate FiO2 05/07/17 22:24 98.7 75 15 164/88 (113) 100 MDM Medical Decision Making Medical Screen Exam Complete: Yes Emergency Medical Condition: Yes Medical Record Reviewed: Yes Differential Diagnosis Strep pharyngitis, viral pharyngitis, otitis media, otitis externa, pneumonia Narrative Course The patient has pharyngitis, she would prefer not to have his throat swab since I am going to give her antibiotics anyway for the otitis media on the left. Impression: Acute left otitis media, pharyngitis Plan: The patient was given a amoxicillin 500 mg 3 times daily for 10 days. Diagnosis Primary Impression: Acute left otitis media Additional Impression: Pharyngitis Additional Instructions: The amoxicillin is 500 mg 3 times daily. This medication is free at [facility] pharmacy. Follow-up next week with your primary care physician. Med/Other Pt SpecificInfo: Prescription(s) given Scripts Amoxicillin (Amoxicillin) 500 Mg Tab 500 MG PO TID for Infection for 10 Days, TAB 0 Refills Prov: Marky Alexandra MD 05/07/17 Disposition: 01 DISCHARGE HOME Condition: Stable Marky Alexandra MD May 07, 2017 22:54
[2017-05-07] MEDS ORDERED: AMOXICILLIN 875 MG TAB PO ONE (23:00)
== END 2017-05-07 23:27 | disposition home or self-care (01) ==
LOC: PHED 22:18
DX: H66.92 Otitis media, unspecified, left ear (principal); J02.9 Acute pharyngitis, unspecified; C92.10 Chronic myeloid leukemia, BCR/ABL-positive, not having achieved remission; D56.9 Thalassemia, unspecified; I10 Essential (primary) hypertension; E11.9 Type 2 diabetes mellitus without complications
CPT/HCPCS: 99283

== ENCOUNTER 2017-05-09 17:57 | Emergency (ER) | payer SELFPAY ==
[~2017-05-09] VITALS: Ht 167.6 cm; Wt 118.5 kg
[~2017-05-09 17:57] MED LIST changes: +AMOX500T PO; -EZET10 PO; -HYDR25TA5 PO; -LOSA100T PO; -LOVA10TA PO
[2017-05-09 18:02] VITALS: BP 181/84; PULSE 97; RESP 16; TEMP 99.8; O2SAT 98
[2017-05-09] MEDS ORDERED: AUGM875T3 PO (18:12)
[2017-05-09] MEDS ORDERED: MAGICADU2 SWISH-SWAL (18:12)
[2017-05-09] MEDS ORDERED: PRED20 PO (18:12)
[2017-05-09] MEDS ORDERED: DEXAMETHASONE SOD PHOS 20 MG/5 ML VIAL IM ONE (18:15)
--- NOTE | 2017-05-09 18:17 | PD ---
HPI Chief Complaint: ENT Complaint Time Seen by Provider: 18:07 Travel History International Travel<30 days: No Contact w/Intl Traveler<30days: No Traveled to known affect area: No History of Present Illness HPI 46-year-old female that presents to the ED for evaluation of sore throat. Patient was seen here 2 days ago and evaluated for this. She does turn amoxicillin. She states that she's been taking antibiotic and most of her symptoms are left-sided were notable to the right side. She still has trouble swallowing but able to do it. Pain is worse with swallowing. No cough or runny nose. States having some chills. Ear pain as well but on the right side. Allergies to different medications. She does have a history of CML and takes chronic therapy for this. She also has a history from osteopenia she cannot take any anti-inflammatories. She has not seen anybody else for this. No other medical issues. PFSH Past Medical History Autoimmune Disease: No Blood Disorders: Yes (Thalassemia) Cancer: Yes (CML WITH THROMBOCYTOSIS/ LEUKEMIA) Cardiac Catheterization: Yes (IN 2008) Cardiovascular Problems: Yes ([place]) High Cholesterol: Yes Chemotherapy: Yes (oral chemo since 2011 ) Diabetes: Yes (DIET CONTROLLED) Diminished Hearing: No Gastrointestinal Disorders: No Genitourinary: No Hypertension: Yes Kidney Stones: No Musculoskeletal: No Neurologic: No Psychiatric: No Reproductive: Yes Respiratory: No Immunizations Current: No Myocardial Infarction: Yes (2005) Radiation Therapy: No Renal Failure: No Seizures: No Sickle Cell Disease: No Sleep Apnea: No Thyroid Disease: No Ulcer: No ?: Not Menopausal: Yes : 4 Para: 4 Miscarriage: 0 : 0 Past Surgical History Abdominal Surgery: Yes (UMBILICAL HERNIA REPAIR) Section: Yes (X3) Gynecologic Surgery: Yes (C-SECTIONS X 3) Hysterectomy: Yes Neurologic Surgery: No Pacemaker: No Thoracic Surgery: No Other Surgery: Yes (THYROGLOSSAL CYST) Social History Alcohol Use: No (pt denies ) Tobacco Use: No Substance Use: No (pt denies) Allergies-Medications (Allergen,Severity, Reaction): Coded Allergies: ceftriaxone (Verified Allergy, Severe, Rash, 05/09/17) codeine (Verified Allergy, Severe, VOMIT, 05/09/17) ibuprofen (Verified Allergy, Severe, Rash, 05/09/17) aspirin (Verified Adverse Reaction, Severe, THROMBOCYTOSIS, 05/09/17) Reported Meds & Prescriptions Reported Meds & Active Scripts Active Prednisone 20 Mg Tab 20 Mg PO BID 5 Days Magic Mouthwash Adult Liq (Multi-Ingredient Mouthwash/Gargle) 120 Ml Susp 5 Ml SWISH-SWAL ACHS Each 5mL contains: Nystatin 200,000units, Diphenhydramine 4.25mg, Viscous Lidocaine 10mg, [place]field syrup 0.8 mL Augmentin (Amoxicillin-Clavulanate) 875-125 Mg Tab 1 Tab PO BID 10 Days Amoxicillin 500 Mg Tab 500 Mg PO TID 10 Days Clindamycin (Clindamycin HCl) 300 Mg Cap 300 Mg PO TID Norvasc (Amlodipine Besylate) 5 Mg Tab 5 Mg PO DAILY Reported Sprycel (Dasatinib) 20 Mg Tab 100 Mg PO DAILY Review of Systems Except as stated in HPI: all other systems reviewed are Neg Physical Exam Narrative GENERAL: Well-nourished, well-developed patient in no apparent distress. SKIN: Warm and dry. HEAD: Atraumatic. Normocephalic. EYES: Pupils equal and round reactive to light and accommodation. No scleral icterus. No injection or drainage. ENT: No nasal bleeding or discharge. Mucous membranes pink and moist. TMs are clear with no sign of infection or perforation. No mastoid tenderness. Ear canals are intact bilaterally. Cervical lymphadenopathy. Nostril mucosa is red and moist with clear mucus noted. No sinus tenderness to palpation noted. Tonsils are enlarged bilaterally with exudates. Not touching, no abscess noted No ulvua Deviation. Tongue is midline. NECK: Trachea midline. No JVD. No meningeal signs noted CARDIOVASCULAR: Regular rate and rhythm. RESPIRATORY: No accessory muscle use. Clear to auscultation. Breath sounds equal bilaterally. GASTROINTESTINAL: Abdomen soft, non-tender, nondistended. Hepatic and splenic margins not palpable. MUSCULOSKELETAL: Extremities without clubbing, cyanosis, or edema. No obvious deformities. NEUROLOGICAL: Awake and alert. No obvious cranial nerve deficits. Motor grossly within normal limits. Five out of 5 muscle strength in the arms and legs. Normal speech. PSYCHIATRIC: Appropriate mood and affect; insight and judgment normal. Data Data Last Documented VS Vital Signs Date Time Temp Pulse Resp B/P (MAP) Pulse Ox O2 Delivery O2 Flow Rate FiO2 05/09/17 18:02 99.8 97 16 181/84 (116) 98 Orders Orders Dexamethasone Inj (Decadron Inj) (05/09/17 18:15) MDM Medical Decision Making Medical Screen Exam Complete: Yes Emergency Medical Condition: Yes Medical Record Reviewed: Yes Differential Diagnosis Tonsillitis versus strep throat versus otitis media versus pharyngitis Narrative Course 46-year-old female that presents to the ED for evaluation of sore throat. Patient was properly examined and was found to have signs and symptoms consistent appears to be tonsillitis. Likely from strep throat. Patient was seen here 2 days ago and she did not notice. She is allergic to amoxicillin. I believe the amoxicillin likely will help with the symptoms but she needs more symptomatic management at this time. I will change her Amoxillin to Augmentin cover for any other pain is symptomatic causing the secondary to her CML. She was given a prescription for Magic mouthwash, prednisone and a shot here of dexamethasone to help with symptoms. She understands that if anything worsens she is to come back. Liquid diet recommended as well as fluids. Tylenol for pain. See ED worsening symptoms. Follow with PCP. Diagnosis Primary Impression: Acute tonsillitis Qualified Codes: J03.90 - Acute tonsillitis, unspecified Additional Impression: Otitis media Qualified Codes: H66.003 - Acute suppurative otitis media without spontaneous rupture of ear drum, bilateral Patient Instructions: General Instructions Additional Instructions: Tylenol for pain and fever. Cold fluids, ice cream, popsicles to help with pain and to keep fluids down. Drink plenty of fluids. Follow-up with PCP. See ED for worsening symptoms. Med/Other Pt SpecificInfo: Prescription(s) given Scripts Prednisone (Prednisone) 20 Mg Tab 20 MG PO BID for 5 Days, #10 TAB 0 Refills Prov: Jess Moses DO 05/09/17 [id number] Liq (Magic Mouthwash Adult Liq) 120 Ml Susp 5 ML SWISH-SWAL ACHS for Mouth sores, #120 ML 0 Refills Each 5mL contains: Nystatin 200,000units, Diphenhydramine 4.25mg, Viscous Lidocaine 10mg, [place] syrup 0.8 mL Prov: Jess Moses DO 05/09/17 Amoxicillin-Clavulanate (Augmentin) 875-125 Mg Tab 1 TAB PO BID for Infection for 10 Days, #20 TAB 0 Refills Prov: Jess Moses 05/09/17 Disposition: 01 DISCHARGE HOME Condition: Stable Pierce James May 09, 2017 18:17
== END 2017-05-09 18:32 | disposition home or self-care (01) ==
LOC: PHEFT 17:57
DX: J03.90 Acute tonsillitis, unspecified (principal); H66.003 Acute suppurative otitis media without spontaneous rupture of ear drum, bilateral; C92.10 Chronic myeloid leukemia, BCR/ABL-positive, not having achieved remission
CPT/HCPCS: 96372; 99283; J1100